=== PATIENT | female | born 1955 | race African-American/Black ===

== ENCOUNTER 2016-03-21 07:24 | Emergency (ER) | payer OTHER ==
[2016-03-21 07:41] VITALS: TEMP 97.4; BMI 36.9
--- NOTE | 2016-03-21 07:42 | EDPRACDOC ---
- General Information Stated Complaint: DIZZY Time Seen by Provider: 03/21/16 07:39 Information Source: Patient Mode Of Arrival: Car Home Medications: Home Medications Hydrochlorothiazide 25 mg PO DAILY 03/21/16 Multivitamin [Multivitamins] 1 each PO DAILY 03/21/16 Olmesartan/Amlodipin/Hcthiazid [Tribenzor 40-10-25 mg Tablet] 1 each PO DAILY Allergies/Adverse Reactions: Allergies Allergy/AdvReac Type Severity Reaction Status Date / Time No Known Allergies Allergy Verified 03/21/16 07:44 - History of Present Illness HPI: PT WOKE UP LAST NIGHT 0; DIZZY, LIGHT HEADED. 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 ABOUT 2 DAYS AGO STARTED WITH OTC MED WITH DEXTROMETHORPHAN FOR FLU LIKE SYMPTOMS. DENIES CHEST PAIN, SOB, NAUSEA. NO H/O CVA. MOM HAD CVA IN 80'S. DENIES BLURRED VISION. ED Past Medical History - History Reviewed Yes Nurses notes reviewed and agree except as marked - Patient Medical History Cardiac History: Reports: Hypertension Surgical History: Reports: Tonsillectomy/Adnoidectomy EDM Review of Systems - Review of Systems ROS Negative Except as Marked: Yes All systems reviewed and were negative except as marked Constitutional: No Symptoms Reported Eyes: No Symptoms Reported Mouth: No Symptoms Reported Respiratory: No Symptoms Reported Cardiovascular: No Symptoms Reported Gastrointestinal: No Symptoms Reported Genitourinary: Frequency Neurological: Dizziness Musculoskeletal: No Symptoms Reported - Physical Exam Constitutional: Alert (Awake), No apparent distress Oriented to: Time, Person, Place Last recorded Vital Signs: Oxygen Pulse Oxygen Saturation O2 Device Oxygen Flow Rate Fraction of Inspired Oxygen ( FIO2) - HEENT Head: Normal ( normocephalic) Eye Exam: Normal (PERRL, EOMI, Sclera white) Oropharynx: Normal (Pharynx:Moist without exudate,Gums-no swelling) Nose: No Symptoms Reported (septum midline) Neck: Normal (FROM, trachea at midline) - Respiratory/Cardiovascular Respiratory: Normal - CTA (BBS clear to auscultation without adventitious sounds ) Cardiovascular: Normal (RRR without murmur, gallop or rub) - GI Auscultation: Normal (NABS) Palpation: Normal (Soft,No rebound or guarding, non distended) Tenderness: Non tender Pham's Sign: Negative - Musculoskeletal Back: Normal (Non-Tender) Extremities: Normal (Normal tone, Pulses 2+ No cyanosis or edema, FROM) - Integumentary Skin: Normal, Warm, Dry Lymphatics: Normal (no adenopathy) - Neurologic Memory Impaired: Normal Motor Function: Normal (Normal tone, Pulses 2+ No cyanosis or edema, FROM) Cranial Nerve: Normal (CN II-X11 intact sensation, strength 5/5) Cerebellar: Normal Mood Description: Normal Perception: Normal - Results 03/21/16 07:56 03/21/16 07:56 Decision Time to Discharge: 08:58 - Departure Yes I personally saw and evaluated the patient. Disposition: Home Condition: Stable Final Diagnosis: Dizziness Instructions: Dizziness (ED) Education/Counseling Given To: Patient Education/Counseling Given Regarding: Diagnosis Referrals: None,No Provider [Primary Care Provider] - One Week Prescriptions: No Action Olmesartan/Amlodipin/Hcthiazid [Tribenzor 40-10-25 mg Tablet] 1 each PO DAILY Hydrochlorothiazide 25 mg PO DAILY Multivitamin [Multivitamins] 1 each PO DAILY Forms: Excuse Note
[2016-03-21 07:52] LABS: LEUKOCYTES/URINE NEG (NEGATIVE); NITRITE/URINE NEG (NEGATIVE); URINE OCCULT BLOOD NEG (NEG/TRACE); WBC/URINE 0-2 (0-5)
[2016-03-21 08:03] LABS: AUTOMATED EOSINOPHIL 0.5 % (0-5); AUTOMATED LYMPH 45.1 % (17-44); AUTOMATED MONOCYTE 15.7 % (3-10); AUTOMATED NEUTROPHIL 37.7 % (45-76)
[2016-03-21 08:16] LABS: PARTIAL THROMB. TIME 23.1 SEC (22-35)
[2016-03-21 08:23] LABS: BLOOD UREA NITROGEN 15 MG/DL (7-17); CALC CORRECTED 8.8 MG/DL (8.4-10.2); CALCIUM 8.7 MG/DL (8.4-10.2); CALCULATED OSMOLALITY 266 MOs/Kg (270-290); CHLORIDE 99 mEq/L (98-107); GLUCOSE 114 mg/dL (70-99); SODIUM LEVEL 137 mEq/L (137-146); TOTAL PROTEIN 7.6 G/DL (6.3-8.2)
--- NOTE | 2016-03-21 08:23 | DIRPT ---
CLINICAL DATA: Dizziness. EXAM: PORTABLE CHEST 1 VIEW COMPARISON: September 03, 2013. FINDINGS: The heart size and mediastinal contours are within normal limits. Both lungs are clear. No pneumothorax or pleural effusion is noted. The visualized skeletal structures are unremarkable. IMPRESSION: No acute cardiopulmonary abnormality seen. Electronically Signed By: Dante Davis Jr, M.D. On: 03/21/2016 08:21
[2016-03-21] MEDS ORDERED: POTASSIUM CHLORIDE 20 MEQ TAB PO ONE (08:58)
[2016-03-21] MEDS ORDERED: MECLIZINE 25 MG TAB PO ONE (09:02)
[2016-03-21 09:12] VITALS: BP 159/70; PULSE 76
== END 2016-03-21 09:25 | disposition home or self-care (01) ==
LOC: ED 07:24
DX: R42 Dizziness and giddiness (principal)
CPT/HCPCS: 36415; 71010; 80053; 81001; 82962; 84484; 85025; 85610; 85730; 93005; 99284; J3490